=== PATIENT | female | born 1975 | race Caucasian/White ===

== ENCOUNTER 2017-09-27 18:20 | Emergency (ER) | payer MEDICAID ==
[~2017-09-27] VITALS: Ht 160 cm; Wt 78.0 kg
[2017-09-27 18:23] VITALS: BP 151/79; PULSE 84; RESP 15; TEMP 98.4; O2SAT 98
--- NOTE | 2017-09-27 18:45 | PD ---
HPI Chief Complaint: Injury Time Seen by Provider: 18:29 Travel History International Travel<30 days: No Contact w/Intl Traveler<30days: No Traveled to known affect area: No History of Present Illness HPI Patient is a 42-year-old female presenting to the emergency department for evaluation of left fourth finger pain. Patient states she slammed her finger in the car door approximately 1 hour prior to arrival. Pain was initially 10 out of 10, and is currently a 7 out of 10 and she states it is throbbing. Symptom onset was sudden, symptoms are moderate in nature. There are no alleviating factors. PFSH Past Medical History Medical History: Denies Significant Hx ?: Not LMP: 09/10/17 Social History Alcohol Use: No Tobacco Use: No Allergies-Medications (Allergen,Severity, Reaction): Coded Allergies: penicillin G (Verified Allergy, Severe, RASH , 09/27/17) Reported Meds & Prescriptions Reported Meds & Active Scripts Active Ibuprofen 800 Mg Tab 800 Mg PO Q6HR PRN Review of Systems Except as stated in HPI: all other systems reviewed are Neg Musculoskeletal: Positive: Myalgias, Pain Skin: Positive Change in Pigmentation Physical Exam Narrative GENERAL: Well-developed, well-nourished, alert female. Presenting in no acute distress. SKIN: Warm and dry. Ecchymosis noted to the left fourth fingertip on the palmar aspect just distal to the DIP joint. HEAD: Normocephalic. EYES: No scleral icterus. No injection or drainage. NECK: Supple, trachea midline. No JVD or lymphadenopathy. CARDIOVASCULAR: Regular rate and rhythm without murmurs, gallops, or rubs. RESPIRATORY: Breath sounds equal bilaterally. No accessory muscle use. GASTROINTESTINAL: Abdomen soft, non-tender, nondistended. MUSCULOSKELETAL: No cyanosis, or edema. No obvious deformities. BACK: Nontender without obvious deformity. No CVA tenderness. Data Data Last Documented VS Vital Signs Date Time Temp Pulse Resp B/P (MAP) Pulse Ox O2 Delivery O2 Flow Rate FiO2 09/27/17 18:23 98.4 84 15 151/79 (103) 98 Orders Orders Finger ([id number]) (09/27/17 ) Ed Discharge Order (09/27/17 19:16) MDM Medical Decision Making Medical Screen Exam Complete: Yes Emergency Medical Condition: Yes Interpretation(s) Last Impressions Finger X-Ray 09/27/17 0000 Signed Impressions: Service Date/Time: Wednesday, September 27, 2017 18:39 - CONCLUSION: 1. No acute findings. Luiz Snatana MD Vital Signs Date Time Temp Pulse Resp B/P (MAP) Pulse Ox O2 Delivery O2 Flow Rate FiO2 09/27/17 18:23 98.4 84 15 151/79 (103 98 Differential Diagnosis Fracture versus contusion versus hematoma versus other Narrative Course Patient is a 42-year-old female presenting to emergency department for evaluation of left fourth finger pain after closing in her car door. Patient is neurovascularly intact. X-ray ordered and pending. Patient was given ice pack for comfort. X-ray of the left fourth finger which was interpreted by me, does not show any acute fracture. Patient will be placed in a finger splint for comfort. She is encouraged to apply cool compress to the affected area, take ibuprofen as needed and as directed for pain. She is encouraged to follow-up with her primary doctor or return to emergency department for any new or worsening symptoms. She verbalized understanding of instructions. Patient stable for discharge. Diagnosis Primary Impression: Contusion, finger Qualified Codes: S60.042A - Contusion of left ring finger without damage to nail, initial encounter Referrals: Primary Care Physician Patient Instructions: Contusion in Adults (ED), General Instructions Additional Instructions: Rest, ice, elevate extremity Use finger splint for support Take ibuprofen as needed and as directed for pain Return to emergency department for any new worsening symptoms Med/Other Pt SpecificInfo: Prescription(s) given Scripts Ibuprofen (Ibuprofen) 800 Mg Tab 800 MG PO Q6HR Y for PAIN, #40 TAB 0 Refills Prov: Lacey Miller 09/27/17 Disposition: 01 DISCHARGE HOME Condition: Stable Lacey Miller September 27, 2017 18:45
[2017-09-27] MEDS ORDERED: IBUP1TAB7 PO (19:16)
--- NOTE | 2017-09-27 19:21 | RADRPT ---
EXAM DATE/TIME: 09/27/2017 18:39 [facility] COMPARISON: No previous studies available for comparison. INDICATIONS : Left hand, fourth digit pain. patient slammed finger in car door. MEDICAL HISTORY : None. SURGICAL HISTORY : None. ENCOUNTER: Initial ACUITY: 1 day PAIN SCORE: 10/10 LOCATION: Left hand, fourth digit. FINDINGS: Examination of the fourth digit of the left hand demonstrates no evidence of fracture or dislocation. No radiopaque foreign bodies are seen. The soft tissues are intact. CONCLUSION: 1. No acute findings. Luiz Santana MD on September 27, 2017 at 19:18 Board Certified Radiologist. This report was verified electronically.
== END 2017-09-27 19:24 | disposition home or self-care (01) ==
LOC: NEPK 18:20
DX: S60.042A Contusion of left ring finger without damage to nail, initial encounter (principal); W23.0XXA Caught, crushed, jammed, or pinched between moving objects, initial encounter
CPT/HCPCS: 73140; 99283